=== PATIENT | male | born 1950 | race Caucasian/White ===

== ENCOUNTER 2024-10-20 12:33 | Emergency (ER) | payer OTHER, SELFPAY ==
[2024-10-20 12:37] VITALS: BP 157/100
[2024-10-20 13:10] LABS: Hematocrit 39.6 % (39.0-52.0); Hemoglobin 13.9 g/dL (13.0-18.0); Mean Corp Hgb Conc. 35.1 g/dL (33.0-37.0); Mean Corpuscular Volume 91.9 fL (80.0-94.0); Platelet Count 286 10^3/uL (130-400); Red Cell Dist. Width 12.8 % (11.5-14.5)
[2024-10-20 13:22] VITALS: BP 157/113
[2024-10-20 13:24] LABS: ALT (SGPT) 20 U/L (0-50); AST (SGOT) 22 U/L (17-59); Albumin 4.2 g/dl (3.5-5.0); Alkaline Phosphatase 78 U/L (38-126); Blood Urea Nitrogen 23 mg/dl (9-20); Calcium 9.5 mg/dl (8.4-10.2); Carbon Dioxide 25 mmol/L (22-30); Chloride 104 mmol/L (98-107); Glucose 129 mg/dl (70-99); Lipase 42 U/L (23-300); Potassium 4.0 mmol/L (3.5-5.1); Sodium 136 mmol/L (135-145); Total Protein 7.2 g/dl (6.3-8.2); eGFR 58.37
[2024-10-20 13:35] LABS: Troponin I 0.023 ng/ml
[2024-10-20 13:36] LABS: Nucleated Red Blood Cells % 0 % (-)
--- NOTE | 2024-10-20 14:02 | ED.GENMED ---
History of Present Illness
General
Chief Complaint: Cardiac Symptoms
Source: patient
Exam Limitations: none
Time Seen by Provider: 10/20/24 13:38
History of Present Illness
History of Present Illness:
74-year-old male presents with profound fatigue intermittent chest pain and urinary symptoms including frequency and urgency. Symptoms have been getting worse over the past several days. He also notes palpitations intermittently for several days.
He has had some intermittent discomfort in the left side of his chest over couple years but the pain is more recently. No fevers or known rashes or tick bites. He denies any vomiting. When he gets the pain in his chest he states it actually gets
better when he runs. No other complaints at this time
Past History
Past History
ED Past Medical History: Other (pancreatic cyst, Diverticulitis); Negative Asthma, HTN, Hypercholesterolemia or NIDDM
ED Past Surgical History: Appendectomy
Social History
Tobacco: Non-smoker
Alcohol: None
Drug: None
Personal:
Living: with family
Phy Exam
Physical Exam
Physical Exam:
General: Well-appearing male no acute respiratory distress
HEENT normocephalic atraumatic
Heart: Tachycardic by my exam regular
Lungs: Clear no wheeze
Abdomen is soft nontender nondistended
Extremities: No cyanosis
Skin warm no rash
Course
Orders/Labs/Results
Orders:
Orders
10/20/24 12:34
EKG [Electrocardiogram (*1)] Urgent
Reason for Study: Chest Pain
10/20/24 12:35
EKG- Treatment ONCE
10/20/24 12:52
Complete Blood Count/With Diff Urgent
Comprehensive Metabolic Panel Urgent
Lipase Urgent
Lyme Progressive Urgent
Date Specimen was Collected: 10/20/24
Time Specimen was Collected: 12:52
Comment: ADDON
10/20/24 12:53
TSH Reflex To Free T4 Urgent
Comment: ADDON
Troponin I Urgent
10/20/24 13:57
Add On- LAB Urgent
Tests Added?: lyme, tsh reflex to t4
CT Chest PE Study Urgent
Comment:
Reason For Exam: chest pain, fatigue, tachycardia
10/20/24 14:09
Urinalysis Reflex To Culture Urgent
Date Specimen was Collected: 10/20/24
Time Specimen was Collected: 14:03
Urine Microscopic Reflex Cult Urgent
Urine Culture Urgent
MICHELE Source: U
Specimen Description:
Date Specimen was Collected: 10/20/24
Time Specimen was Collected: 14:03
10/20/24 17:56
0.9% Sodium Chloride 1000 ml [Nss] 1,000 ml IV BOLUS
CefTRIAXone [Rocephin] 1,000 mg IV NOW STA
Abnormal Lab Results
10/20/24 10/20/24
12:52 14:09
WBC 25.8 H 10^3/uL
(4.8-10.8)
RBC 4.31 L 10^6/uL
(4.70-6.10)
MCH 32.3 H pg
(27.0-31.0)
Abs Immat Gran (auto) 0.2 H 10^3/uL
(0-0.05)
Absolute Neuts (auto) 22.0 H 10^3/uL
(1.4-6.5)
Absolute Monos (auto) 2.0 H 10^3/uL
(0.1-0.6)
Immature Gran % 0.7 H %
(0-0.5)
Neutrophils % 85.4 H %
(42.2-75.2)
Lymphocytes % 5.9 L %
(20.5-51.1)
BUN 23 H mg/dl
(9-20)
Glucose 129 H mg/dl
(70-99)
Ur Occult Blood Reflex 4+ A
(Negative)
Urine Nitrite (Reflex) Positive A
(Negative)
Leukocyte Esterase Rfl 2+ A
(Negative)
Urine WBC (Reflex) 11-15 A /HPF
(0-5)
Urine Bacteria (Reflex) Moderate A
(Negative)
Urine Albumin (Reflex) 2+ A
(Neg - Trace)
10/20/24 12:52
10/20/24 12:52
Vital Signs
Initial and Last Documented VS:
Initial Vital Signs
Temp Pulse Resp BP Pulse Ox
99.7 F 83 16 157/100 98
10/20/24 12:37 10/20/24 12:37 10/20/24 12:37 10/20/24 12:37 10/20/24 12:37
Last Documented Vital Signs
Temp Pulse Resp BP Pulse Ox
99.7 F 92 16 157/113 96
10/20/24 12:37 10/20/24 14:21 10/20/24 14:13 10/20/24 13:22 10/20/24 18:37
MDM/Problems Addressed
Differential Diagnosis Includes:
Patient with multiple symptoms of urinary frequency and urgency chest pain palpitations. Initial EKG showed rapid atrial fibrillation. On my exam in the room he is in sinus tach in the room. Will check troponin labs. Given the slight fatigue and
tachycardia PE study was ordered.
*Pulse Oximetry
SaO2: 98
Oxygen Mode of Delivery: Room air
Patient hypoxic: no
*Critical Care Note
Total Time (30-74mins, 75-104mins- exclusive of procedures): Not Applicable
Update Note
Update Note:
Workup consistent with UTI. Explained to patient that there is some concern for sepsis given his leukocytosis of 25,000. He was tachycardic initially(rapid atrial fibrillation on the EKG) and explained he meets criteria for admission. Recommended
admission for UTI. Patient declined. He was given a dose of Rocephin to treat his UTI. Since being on the monitor in the room has been in the sinus rhythm. He states he feels himself going in and out of an arrhythmia frequently. He states it
never is long-lasting. Also had a separate discussion with him regarding his atrial fibrillation and potential need for anticoagulation and rate control medication however he declined both of these. He wishes to follow-up with a hand printed circuit board assembler that
he can talk it over with them. Explained the risk of stroke with atrial fibrillation not being anticoagulated. He understood this. Return precaution were given including fevers rigors chills vomiting persistent palpitations or other concerning
findings. Again was recommended to be admitted but he declined.
ED Attending Note
-
Portions of this chart may have been created with voice recognition software.� Occasional wrong word or��sound alike� substitutions may have occurred due to the inherent limitations of voice recognition software.
Discharge Plan
Departure
Patient Disposition: Home (Routine Discharge)
Date of Disposition: 10/20/24
Time of Disposition: 18:45
Patient with high blood pressure during this ER visit?: No
Discharge Problem:
Acute UTI
Instructions: Chest Pain CBC Follow Up
Prescriptions:
New
cefdinir 300 mg capsule
300 mg PO BID Qty: 14 0RF
No Action
amoxicillin-pot clavulanate 1 TABLET tablet
1 tab PO Q12 7 Days Qty: 14 0RF
Multivitamin
1 tab PO DAILY 30 Days Qty: 30 0RF
Vitamin C Tab
500 mg PO DAILY 30 Days Qty: 30 0RF
levofloxacin 500 MG tablet
500 mg PO DAILY Qty: 6 0RF
fluticasone propionate 1 SPRAY spray,suspension
2 spray intranasal BID Qty: 1 0RF
prednisone 50 MG tablet
50 mg PO DAILY Qty: 5 0RF
pseudoephedrine HCl [Sudafed] 30 MG tablet
60 mg PO Q6H Qty: 35 0RF
Referrals:
Wilmar Kaur MD [Family Provider, Internal Medicine]
Activity Restrictions/Additional Instructions:
Take antibiotics as directed for the urinary tract infection. As discussed we offered admission to hospital secondary to the atrial fibrillation, high white blood cell count and active infection. Drink plenty of fluids. Return here if you develop
persistent fever vomiting or other concerning findings. Please follow-up with cardiology for further evaluation and discussion regarding your atrial fibrillation
Interventions
Interventions:
*Risk Screen - Suicide Last Done: 10/20/24 14:21
*General Assessment Last Done: 10/20/24 14:21
*Neglect/Abuse Screening Last Done: 10/20/24 14:21
*ED- Fall Risk Assessment Last Done: 10/20/24 14:21
*ED COVID-19 Vaccine History Last Done: 10/20/24 14:21
QT-Boghos-Lvoemppqgq Assessment Last Done: 10/20/24 18:37
ED- Cardiac Assessment Last Done: 10/20/24 18:37
ED-Male Genitourinary Assessment Last Done: 10/20/24 18:37
ED- Pulmonary Assessment Last Done: 10/20/24 18:37
Discharge Date and Time
Print Language: HAITIAN
[2024-10-20 14:09] VITALS: BMI 23.4
[2024-10-20 14:23] LABS: Urine Character Clear (Clear)
[2024-10-20 14:30] LABS: Urine Red Blood Cell 0-2 /HPF (0-2); Urine Squamous Cell 0-2 /LPF (Few)
[2024-10-20] MEDS: ROCEPHIN 1000 MG IV (18:28)
[2024-10-20] MEDS: NSS 1000 IV (18:29)
[2024-10-20 18:31] VITALS: BP 161/111
== END 2024-10-20 19:02 | disposition home or self-care (01) ==
LOC: EMR 12:33
PROVIDERS: Emergency Medicine; Physician Assistant; EMERGENCY PHYSICIAN Emergency Medicine; FAMILY PHYSICIAN Internal Medicine
DX: N39.0 Urinary tract infection, site not specified (principal); R07.89 Other chest pain; I48.91 Unspecified atrial fibrillation; Z90.49 Acquired absence of other specified parts of digestive tract
CPT/HCPCS: 99284; 96374; 96361; 71275; 80053; 81003; 81015; 83690; 84443; 84484; 85025; 86618; 87077; 87086; 87186; 93005; Q9967